=== PATIENT | female | born 1955 | race Caucasian/White ===

== ENCOUNTER 2022-10-06 19:25 | Emergency (ER) | payer SELFPAY ==
[~2022-10-06] VITALS: Ht 162.6 cm; Wt 75.5 kg
[2022-10-06] MEDS ORDERED: AMLODIPINE 5MG TABLET PO ONE (20:30)
[2022-10-06] MEDS ORDERED: TETANUS, DIPHTHERIA, PERTUSSIS VAC/PF 0.5ML (>10YR OLD) IM ONE (20:30)
[2022-10-06] MEDS ORDERED: CEPHALEXIN 250MG CAPSULE PO ONE (20:30)
[2022-10-06 20:57] LABS: BASOPHILS % 0.6 % (0.0-2.0); EOSINOPHILS % 2.1 % (0.0-5.0); HEMATOCRIT. 36.6 % (36.0-48.0); LYMPHOCYTES % 33.9 % (20.0-50.0); MEAN CORPUSCULAR HEMOGLOBIN 29.6 pg (28.0-32.0); MEAN CORPUSCULAR VOLUME 90.3 fL (81.0-99.0); MEAN PLATELET VOLUME 7.7 fl (7.4-10.4); MONOCYTES % 10.4 % (2.0-8.0); PLATELET 314 x1000/uL (130-400); RED BLOOD CELL COUNT 4.05 mill/uL (4.2-5.4); RED CELL DISTRIBUTION WIDTH 12.6 % (11.6-14.6)
[2022-10-06 21:03] LABS: CHLORIDE 105 mEq/L (98-107)
[2022-10-06] MEDS ORDERED: IBUP-2029 MT (23:14)
[2022-10-06] MEDS ORDERED: CEPH500C2 MT (23:14)
[2022-10-06] MEDS ORDERED: AMLO2.5T2 MT (23:14)
[2022-10-06 23:20] VITALS: BP 164/73
== END 2022-10-06 23:43 | disposition home or self-care (01) ==
LOC: ER 19:25
DX: I10 Essential (primary) hypertension (principal); L03.116 Cellulitis of left lower limb; M79.672 Pain in left foot
CPT/HCPCS: 36415; 80053; 85025; 90471; 90715; 99283